=== PATIENT | male | born 1975 | race Caucasian/White ===

== ENCOUNTER 2017-04-28 13:18 | Emergency (ER) | payer SELFPAY ==
[~2017-04-28] VITALS: Ht 175.3 cm; Wt 82.3 kg
[2017-04-28] MEDS ORDERED: AMLODIPINE BES2.5 MG PO (14:53)
[2017-04-28] MEDS ORDERED: ASPIR LOW81 MG PO (14:54)
[2017-04-28] MEDS ORDERED: LIPITOR 80MG80 MG PO (14:55)
[2017-04-28] MEDS ORDERED: CALCIUM + D3 E1 EACH PO (14:55)
[2017-04-28] MEDS ORDERED: NEURONTIN400 M1 PO (14:57)
[2017-04-28] MEDS ORDERED: DOCUSATE SOD100 MG PO (14:57)
[2017-04-28] MEDS ORDERED: CLOPIDOGREL PO (14:57)
[2017-04-28] MEDS ORDERED: CYMBALTA60 M1 PO (14:57)
[2017-04-28] MEDS ORDERED: NORCO 325 MG-51 TA1 PO (14:57)
[2017-04-28] MEDS ORDERED: ISORDIL 10MG10 MG PO (14:58)
[2017-04-28] MEDS ORDERED: CORLANOR5 MG PO (15:00)
[2017-04-28] MEDS ORDERED: LISINOPRIL10 MG PO (15:01)
[2017-04-28] MEDS ORDERED: LORAZEPAM1 M1 PO (15:01)
[2017-04-28] MEDS ORDERED: GLUCOPHAGE PO (15:02)
[2017-04-28] MEDS ORDERED: LEADER MELATONIN5 MG PO (15:02)
[2017-04-28] MEDS ORDERED: ANTIVERT12.5 M1 PO (15:02)
[2017-04-28] MEDS ORDERED: NITROSTAT0.4 M1 SL (15:03)
[2017-04-28] MEDS ORDERED: LOPRESSOR 550 MG/TAB PO (15:03)
[2017-04-28] MEDS ORDERED: PANTOPRAZOLE SO20 MG PO (15:03)
[2017-04-28] MEDS ORDERED: FLOMAX 0.40.4 MG/CAP (15:04)
[2017-04-28] MEDS ORDERED: RANEXA1000 M1 PO (15:04)
[2017-04-28] MEDS ORDERED: XARELTO15 MG PO (15:04)
[2017-04-28] MEDS ORDERED: AMBIEN5 M1 PO (15:05)
[2017-04-28] MEDS ORDERED: TRAMADOL 50 MG TAB PO (15:05)
[2017-04-28 17:59] VITALS: BP 156/115
== END 2017-04-28 17:56 | disposition short-term general hospital (02) ==
LOC: ED 13:18 → EDSEX 14:15 → ED 17:56
DX: I25.110 Atherosclerotic heart disease of native coronary artery with unstable angina pectoris (principal); I10 Essential (primary) hypertension; E11.9 Type 2 diabetes mellitus without complications; Z95.5 Presence of coronary angioplasty implant and graft; Z95.1 Presence of aortocoronary bypass graft; F17.200 Nicotine dependence, unspecified, uncomplicated; Z86.711 Personal history of pulmonary embolism; Z86.718 Personal history of other venous thrombosis and embolism; Z86.73 Personal history of transient ischemic attack (TIA), and cerebral infarction without residual deficits; Z79.02 Long term (current) use of antithrombotics/antiplatelets; Z79.01 Long term (current) use of anticoagulants; Z79.84 Long term (current) use of oral hypoglycemic drugs
CPT/HCPCS: J2270; Q9967

== ENCOUNTER 2017-05-04 17:38 | Emergency (ER) | payer SELFPAY ==
[~2017-05-04] VITALS: Ht 175.3 cm; Wt 83.2 kg
[~2017-05-04 17:38] MED LIST: AMBIEN5 M1 PO; AMLODIPINE BES2.5 MG PO; ANTIVERT12.5 M1 PO; ASPIR LOW81 MG PO; CALCIUM + D3 E1 EACH PO; CLOPIDOGREL PO; CORLANOR5 MG PO; CYMBALTA60 M1 PO; DOCUSATE SOD100 MG PO; FLOMAX 0.40.4 MG/CAP; GLUCOPHAGE PO; ISORDIL 10MG10 MG PO; LEADER MELATONIN5 MG PO; LIPITOR 80MG80 MG PO; LISINOPRIL10 MG PO; LOPRESSOR 550 MG/TAB PO; LORAZEPAM1 M1 PO; NEURONTIN400 M1 PO; NITROSTAT0.4 M1 SL; NORCO 325 MG-51 TA1 PO; PANTOPRAZOLE SO20 MG PO; RANEXA1000 M1 PO; TRAMADOL 50 MG TAB PO; XARELTO15 MG PO
[2017-05-04 23:25] VITALS: BP 143/96
[2017-05-05] MEDS ORDERED: PROTONIX TR40 M1 PO (18:50)
== END 2017-05-04 23:25 | disposition home or self-care (01) ==
LOC: ED 17:38 → EDSEX 18:09 → ED 23:25
DX: R07.9 Chest pain, unspecified (principal); F41.9 Anxiety disorder, unspecified; R06.4 Hyperventilation; R19.4 Change in bowel habit; Z86.718 Personal history of other venous thrombosis and embolism; E11.9 Type 2 diabetes mellitus without complications; Z86.73 Personal history of transient ischemic attack (TIA), and cerebral infarction without residual deficits; Z95.5 Presence of coronary angioplasty implant and graft; Z95.1 Presence of aortocoronary bypass graft; Z79.01 Long term (current) use of anticoagulants; Z79.02 Long term (current) use of antithrombotics/antiplatelets
CPT/HCPCS: J2060; J2270

== ENCOUNTER 2017-05-05 13:20 | Emergency (ER) | payer SELFPAY ==
[~2017-05-05] VITALS: Ht 167.6 cm; Wt 72.7 kg
[2017-05-05] MEDS ORDERED: PROTONIX TR40 M1 PO (18:50)
[2017-05-05 19:10] VITALS: BP 137/84
== END 2017-05-05 19:02 | disposition home or self-care (01) ==
LOC: ED 13:20
DX: R55 Syncope and collapse (principal); R07.9 Chest pain, unspecified; R07.89 Other chest pain; R10.816 Epigastric abdominal tenderness; R19.7 Diarrhea, unspecified; R19.5 Other fecal abnormalities; K62.89 Other specified diseases of anus and rectum; E11.9 Type 2 diabetes mellitus without complications; Z79.84 Long term (current) use of oral hypoglycemic drugs; I10 Essential (primary) hypertension; Z86.73 Personal history of transient ischemic attack (TIA), and cerebral infarction without residual deficits; Z86.711 Personal history of pulmonary embolism; Z86.718 Personal history of other venous thrombosis and embolism; R11.0 Nausea
CPT/HCPCS: C9113; J1885; J2060; J2405; J7030